=== PATIENT | female | born 1960 | race Caucasian/White ===

== ENCOUNTER 2021-09-24 09:20 | Emergency (ER) | payer BC, SELFPAY ==
--- NOTE | ~2021-09-24 | CT_ITS ---
EXAMINATION: CT abdomen pelvis wo con DATE: 09/24/2021 10:01 INDICATION: Left flank pain TECHNIQUE: Computed tomography (CT) of the abdomen and pelvis was performed without intravenous contr ast. The dose-length product (DLP) was 691.24 mGy-cm. Automated exposure control and iterative recons truction technique were employed. COMPARISON: None FINDINGS: Minimal dependent atelectasis is present in the lung bases. The heart size is normal. The l iver, spleen, pancreas, gallbladder, and adrenal glands are normal. The kidneys are unremarkable. No stones are identified in the kidneys, ureters, or bladder. There is no hydronephrosis or hydroureter. No pathologically enlarged abdominal or pelvic lymph nodes are identified. There is no free intraper itoneal gas or evidence of bowel obstruction. Colonic diverticulosis is present without evidence of d iverticulitis. There is moderate lumbar spondylosis. IMPRESSION: 1. No CT correlate for the patient's symptoms. Reviewed, dictated and finalized at location B.
[2021-09-24 09:30] VITALS: BP 186/90; PULSE 88; RESP 16; TEMP 36.1; O2SAT 98
--- NOTE | 2021-09-24 09:51 | ED.BACK ---
HPI - Back Pain/Injury General Chief Complaint: Back Pain/Injury Stated Complaint: flank pain Time Seen by Provider: 09/24/21 09:38 Source: patient Mode of arrival: ambulatory Limitations: no limitations History of Present Illness HPI Narrative: Patient is 61 years old white female presents with intermittent left flank pain over the last 2 weeks, lately radiating to left lower quadrant. Patient denies any aggravating or relieving factors. Patient denies any fever, chills, nausea, vomiting, diarrhea, urinary symptoms. Patient been to a chiropractor and body massage in the last few days without any improvement. History of section x2, kidney stone and degenerative joint disease. Related Data Home Medications Medication Instructions Recorded Confirmed calcium carbonate 600 mg calcium 600 mg PO DAILY 07/15/20 04/23/21 (1,500 mg) tablet cholecalciferol (vitamin D3) 10 10 mcg PO DAILY 07/15/20 04/23/21 mcg (400 unit) capsule diphenhydramine HCl 25 mg capsule 25 mg PO TID PRN 07/15/20 04/23/21 fluocinonide 0.05 % topical gel 1 applic TOPICAL BID 07/15/20 07/15/20 multivitamin 1 tablet PO DAILY 07/15/20 04/23/21 Allergies Allergy/AdvReac Type Severity Reaction Status Date / Time Iodinated Contrast Media Allergy Mild Itching Verified 09/24/21 09:41 Review of Systems Review of Systems: CONSTITUTIONAL: Denies fever, chills, or sweats. EYES: Denies visual changes, redness, or discharge. ENT: Denies rhinorrhea, congestion, sore throat, or otalgia. CARDIOVASCULAR: Denies chest pain, palpitations, or edema. RESPIRATORY: Denies cough or dyspnea. GASTROINTESTINAL: Denies abdominal pain, nausea, vomiting, or diarrhea. GENITOURINARY: Denies dysuria or hematuria. SKIN: Denies rash or itching. MUSCULOSKELETAL: Denies back pain, joint pain, or myalgia. NEUROLOGIC: Denies headache, numbness, or weakness. PSYCHIATRIC: Denies anxiety or depression. [facility] Past Medical History Medical History (Updated 09/24/21 @ 11:31 by Rocky Lai MD) BMI 27.0-27.9,adult Carpometacarpal joint dislocation Chronic low back pain Encounter for wellness examination Foot pain Osteoarthritis of both wrists Torn Achilles tendon Unspecified osteoarthritis, unspecified site Vitamin D deficiency Surgical History Surgical History Hx of section 1989 & 1992 Family History Family History Other Diabetes mellitus Family history of arthritis Family history of kidney disease Hypertension Social History Social History Smoking status: Former smoker Second hand tobacco smoke exposure: No Smoking end date: 07/05/85 Alcohol intake: current Alcohol use details: consumes 2 beers weekly Substance use: never Substance use type: does not use Gender identity (if verbalized by the patient): Female Exam Narrative: General appearance: Well-developed, well-nourished Skin: Normal color Head: Normocephalic, nontraumatic Eyes: Clear conjunctiva ENT: Oropharynx normal, ears normal, nose normal Neck: Supple, nontender Chest and respiratory: Airway patent, no respiratory distress, no accessory muscle use Heart: Regular rate/rhythm Abdomen: Soft, mild tenderness left flank, no guarding or rebound Vascular: Normal peripheral pulses, normal capillary refill. Musculoskeletal: Normal range of motion, nontender back Neurologic: Alert and oriented ?3, [employer] is normal as tested, no gross motor deficit Course Vital Signs Vital signs: Vital Signs Temperature 36.1 C L 09/24/21 09:30 Pulse Rate
[2021-09-24] MEDS: SODIUM CHLORIDE 0.9% IV 1,000 ML 999 ML IV CONT (10:15)
[2021-09-24 10:30] LABS: Basophils Percent Auto 0.5 % (0.2-1.2); Eosinophils Absolute Auto 0.1 K/mm3 (0-0.3); Eosinophils Percent Auto 2.7 % (0-4.4); Hematocrit 41.4 % (37.0-47.0); Immature Granulocyte Absolute 0.01 K/mm3 (0.00-0.031); Immature Granulocyte Percent A 0.2 % (0-0.5); Lymphocytes Absolute Auto 0.93 K/mm3 (0.9-3.2); Mean Corpuscular HGB Conc 33.8 g/dl (32-36); Mean Corpuscular Hemoglobin 31.5 pg (26-34); Mean Corpuscular Volume 93.2 fl (80-100); Monocytes Absolute Auto 0.3 K/mm3 (0.1-0.6); Monocytes Percent Auto 6.6 % (2.6-8.5); Neutrophils Absolute Auto 3.1 K/mm3 (1.3-6.7); Platelet Count Result 192 k/mm3 (150-375); Red Blood Count 4.44 M/mm3 (4.2-5.4); White Blood Count 4.4 K/mm3 (4.5-10.0)
[2021-09-24 10:34] LABS: Add Urine Microscopic? YES; Appearance Urine Cloudy (Clear); Bilirubin Urine Negative (Negative); Blood Urine Negative (Negative); Color Urine Yellow (Yellow); Glucose Urine UA Negative (Negative); Ketones Urine Negative (Negative); Leukocyte Esterase Ur Trace LEU/UL (Negative); Mucus Urine Moderate /lpf; Nitrate Urine Negative (Negative); Protein Urine Negative (Negative); RBC Urine 0-2 /hpf (0-2); Specific Grav Ur 1.019 (1.001-1.035); Squamous Epithelial Cell Urine Rare /hpf (Few); Urobilinogen Urine Negative mg/dL (<2.0); WBC Urine 0-3 /hpf
[2021-09-24 10:42] LABS: Alanine Aminotransferase 19 U/L (4-35); Albumin Level 4.2 g/dL (3.5-5.1); Alkaline Phosphatase 65 U/L (38-126); Anion Gap 6 mmol/L (8-16); Aspartate Amino Transferase 23 U/L (14-36); Bilirubin,Total 0.2 mg/dL (0.2-1.3); Blood Urea Nitrogen 13 mg/dL (7-17); Calcium 9.2 mg/dL (8.4-10.2); Carbon Dioxide 27 mmol/L (22-30); Chloride 105 mmol/L (98-107); Estimated CRCL calculation 56 ml/min; Estimated Glomerular Filt Rate > 60; Glucose 113 mg/dL (65-110); Lipase 106 U/L (23-300); Sodium 138 mmol/L (137-145)
[2021-09-24 11:18] VITALS: BP 136/70; PULSE 60; RESP 15; O2SAT 100
--- NOTE | 2021-09-24 11:18 | PC.NURSE ---
Pt to CT.
[2021-09-24] MEDS: MORPHINE SULFATE (*CRX) 4 MG/ML INJ IV PUSH (11:29)
[2021-09-24] MEDS: ONDANSETRON INJ 4 MG/2 ML VIAL IV PUSH (11:29)
[2021-09-24] MEDS: KETOROLAC 30 MG/ML VIAL (*BKC) IV PUSH (11:33)
[2021-09-24 12:02] VITALS: BP 147/82; PULSE 74; RESP 16; O2SAT 96
== END 2021-09-24 12:02 | disposition home or self-care (01) ==
PROVIDERS: Emergency Provider Emergency Medicine; PCP Family Medicine
DX: M54.50 Low back pain, unspecified (principal); M19.90 Unspecified osteoarthritis, unspecified site
CPT/HCPCS: 36415; 74176; 80053; 81001; 83690; 85025; 96361; 96374; 96375; 99284; J1885; J2270; J2405; J7030

== ENCOUNTER 2022-06-16 13:08 | Outpatient (CLI) | payer BC, SELFPAY ==
[2022-06-16 13:59] LABS: Influenza A QL RT-PCR Negative (Negative); Influenza B QL RT-PCR Negative (Negative); RSV RNA, RT-PCR Negative (Negative); SARS-CoV-2 RNA PCR Negative
== END 2022-06-16 13:09 | disposition home or self-care (01) ==
LOC: ANHLAB 13:10
PROVIDERS: PCP Family Medicine; Visit Provider Physician Assistant
DX: R50.9 Fever, unspecified (principal); Z20.822 Contact with and (suspected) exposure to COVID-19
CPT/HCPCS: 87637

== ENCOUNTER 2022-08-17 16:56 | Outpatient (CLI) | payer BC, SELFPAY ==
--- NOTE | ~2022-08-17 | XR_ITS ---
EXAMINATION: XR chest 2V Exam Date/Time: 08/17/2022 17:13 SAFETY COMPLIANCE SPECIALIST HISTORY: R06.2 - Wheezing FOR 4 DAYS Comparison: None available. RESULT: Lines, tubes, and devices: None. Lungs and pleura: Clear. Cardiomediastinal silhouette: Unremarkable. Other: No acute osseous or upper abdominal finding. IMPRESSION: No acute cardiopulmonary process. Reviewed, dictated and finalized at location K. TY COMPLIANCE SPECIALIST
== END 2022-08-17 16:57 | disposition home or self-care (01) ==
PROVIDERS: PCP Family Medicine; Visit Provider Physician Assistant Medical
DX: R06.2 Wheezing (principal)
CPT/HCPCS: 71046

== ENCOUNTER 2023-02-18 06:06 | Emergency (ER) | payer BC, SELFPAY ==
[2023-02-18] VITALS (22 sets, daily range): BP systolic 130–151; BP diastolic 80–103; PULSE 122; RESP 22; TEMP 36.7; O2SAT 94–100
--- NOTE | ~2023-02-18 | XR_ITS ---
EXAMINATION: XR chest 1V portable DATE: 02/18/2023 07:49 INDICATION: Chest tightness. Shortness of breath. TECHNIQUE: A single frontal view of the chest was obtained. COMPARISON: Chest 2 views 08/17/2022, CT abdomen and pelvis 09/24/2021 FINDINGS: There is no pneumonia, pleural effusion, or pneumothorax. The heart size is normal. IMPRESSION: 1. No acute cardiopulmonary disease. Reviewed, dictated and finalized at location A.
[2023-02-18] MEDS: SODIUM CHLORIDE 0.9% IV 1,000 ML 999 ML IV CONT (06:27)
[2023-02-18] MEDS: methylPREDNISolone SOD SUCC 125 MG VIAL IV PUSH (06:27)
[2023-02-18] MEDS: diphenhydrAMINE HCl INJ 50 MG/ML VIAL 25 MG IV PUSH (06:27)
[2023-02-18] MEDS: FAMOTIDINE 20 MG/2 ML VIAL IV PUSH (06:27)
--- NOTE | 2023-02-18 06:32 | ED.GENADULT ---
HPI - General Adult General Chief complaint: Allergic Reaction <Favio Chandra MD - Last Filed: 02/18/23 07:12> Stated complaint: severe itching <Favio Chandra MD - Last Filed: 02/18/23 07:12> Time Seen by Provider: 02/18/23 06:14 <Favio Chandra MD - Last Filed: 02/18/23 07:12> History of Present Illness HPI narrative: Patient is a 62-year-old female who presents the emergency department with chief complaint of possible allergic reaction. Patient reports that she woke up from sleep last night itching all over and reports that her face and neck were red. The patient reports no new medications reports no new soaps or creams the patient only reports that she had a peach ger yesterday is the only thing different. <Favio Chandra MD - Last Filed: 02/18/23 07:12> Related Data Home medications: Home Medications Medication Instructions Recorded Confirmed calcium carbonate 600 mg calcium 600 mg PO DAILY 07/15/20 02/02/23 (1,500 mg) tablet (Calcium) cholecalciferol (vitamin D3) 10 10 mcg PO DAILY 07/15/20 02/02/23 mcg (400 unit) capsule diphenhydramine HCl 25 mg capsule 25 mg PO TID PRN 07/15/20 02/02/23 (Benadryl) multivitamin (Daily Multi-Vitamin 1 tablet PO DAILY 07/15/20 02/02/23 tablet) <Favio Chandra MD - Last Filed: 02/18/23 07:12> Allergies/adverse reactions: Allergies Allergy/AdvReac Type Severity Reaction Status Date / Time Iodinated Contrast Media Allergy Mild Itching Verified 02/18/23 06:06 <Favio Chandra MD - Last Filed: 02/18/23 07:12> Review of Systems Review of Systems: A 10 system review of systems was completed on the patient and is negative except for what is stated in the HPI. Nursing and ancillary documentation was reviewed. <Favio Chandra MD - Last Filed: 02/18/23 07:12> [facility] Past Medical History Medical History: Medical History (Updated 02/18/23 @ 07:11 by Favio Chandra MD) BMI 27.0-27.9,adult Carpometacarpal joint dislocation Chronic low back pain Encounter for wellness examination Foot pain Osteoarthritis of both wrists Torn Achilles tendon Unspecified osteoarthritis, unspecified site Vitamin D deficiency <Favio Chandra MD - Last Filed: 02/18/23 07:12> Surgical History Surgical History: Surgical History Hx of section 1989 & 1992 <Favio Chandra MD - Last Filed: 02/18/23 07:12> Family History Family History: Family History Other Diabetes mellitus Family history of arthritis Family history of kidney disease Hypertension <Favio Chandra MD - Last Filed: 02/18/23 07:12> Social History Social History: Social History Smoking status: Former smoker Second hand tobacco smoke exposure: No Smoking end date: 07/05/85 Alcohol intake: current Alcohol use details: consumes 2 beers weekly Substance use: never Substance use type: does not use Lack of Transportation: No Lack of Food: Never True Current Housing: I Have Housing Concerned About Future Housing: No Difficulty Paying Gas/Electric Bills: No Difficulty Paying for Meds: No Currently Unemployed: No Education: Master's Degree or Higher Difficulty w/ Childcare or Family Care: No Gender identity (if verbalized by the patient): Female Spiritual care concerns: No Agree to blood products: Yes <Favio Chandra MD - Last Filed: 02/18/23 07:12> Exam Narrative: GENERAL: Well-appearing, well-nourished, and in no acute distress. HEAD: Normocephalic, atraumatic. EYES: PERRLA and EOMI. ENT: Nares clear, no rhinorrhea or epistaxis. Mucous membranes moist. NECK: Supple. CHEST: Clear to auscultation.
[2023-02-18 06:45] LABS: Basophils Percent Auto 0.5 % (0.2-1.2); Eosinophils Absolute Auto 0.1 K/mm3 (0-0.3); Hematocrit 47.1 % (37.0-47.0); Hemoglobin 15.5 g/dL (12.0-15.0); Immature Granulocyte Absolute 0.02 K/mm3 (0.00-0.031); Immature Granulocyte Percent A 0.4 % (0-0.5); Lymphocytes Absolute Auto 1.98 K/mm3 (0.9-3.2); Lymphocytes Percent Auto 35.9 % (18.3-44.2); Mean Corpuscular HGB Conc 32.9 g/dl (32-36); Mean Corpuscular Hemoglobin 31.3 pg (26-34); Mean Platelet Volume 10.4 fl (7.4-10.4); Monocytes Absolute Auto 0.4 K/mm3 (0.1-0.6); Monocytes Percent Auto 7.8 % (2.6-8.5); Neutrophils Absolute Auto 2.9 K/mm3 (1.3-6.7); Neutrophils Percent Auto 53.4 % (45.5-73.1); Platelet Count Result 329 k/mm3 (150-375); Red Blood Count 4.96 M/mm3 (4.2-5.4); Red Cell Distribution Width 12.7 % (11.5-14.5); White Blood Count 5.5 K/mm3 (4.5-10.0)
[2023-02-18 06:59] LABS: Alanine Aminotransferase 29 U/L (6-35); Albumin Level 4.3 g/dL (3.5-5.1); Alkaline Phosphatase 95 U/L (38-126); Anion Gap 9 mmol/L (8-16); Aspartate Amino Transferase 26 U/L (14-36); Bilirubin,Total 0.4 mg/dL (0.2-1.3); Blood Urea Nitrogen 19 mg/dL (7-17); Calcium 9.4 mg/dL (8.4-10.2); Carbon Dioxide 22 mmol/L (22-30); Chloride 103 mmol/L (98-107); Estimated CRCL calculation 55 ml/min; Estimated Glomerular Filt Rate 56; Glucose 130 mg/dL (65-110); Magnesium 2.2 mg/dL (1.6-2.3); Potassium 3.7 mmol/L (3.4-5.0); Sodium 134 mmol/L (137-145)
--- NOTE | 2023-02-18 07:14 | ECG_ITS ---
Measurements Intervals [place] Rate: 72 P: 28 TN: 141 QRS: 13 QRSD: 85 T: 28 QT: 376 QTc: 413 Interpretive Statements SINUS RHYTHM LOW QRS VOLTAGE IN PRECORDIAL LEADS [QRS DEFLECTION < 1.0 mV IN CHEST LEADS] BORDERLINE ECG NO PREVIOUS ECG AVAILABLE FOR COMPARISON Electronically Signed On 02-18-2023 13:17:00 CDT by Franco Nguyen M.D.
[2023-02-18 07:59] LABS: Troponin I < 0.012 ng/mL (0.000-0.034)
[2023-02-18 11:19] LABS: Troponin I 0.027 ng/mL (0.000-0.034)
== END 2023-02-18 11:48 | disposition home or self-care (01) ==
PROVIDERS: Emergency Medicine; Emergency Provider General Practice; PCP Family Medicine
DX: T78.40XA Allergy, unspecified, initial encounter (principal); Z87.891 Personal history of nicotine dependence
CPT/HCPCS: 36415; 71045; 80053; 83735; 84484; 85025; 93005; 96361; 96374; 96375; 99284; J1200; J2930; J7030

== ENCOUNTER 2023-05-14 14:33 | Inpatient (IN) | payer BC, SELFPAY ==
[2023-05-14] VITALS (19 sets, daily range): BP systolic 105–201; BP diastolic 56–110; PULSE 78–95; RESP 14–18; TEMP 36.2–36.4; O2SAT 90–100; BMI 32.4
--- NOTE | ~2023-05-14 | US_ITS ---
EXAMINATION: US abdomen limited DATE: 05/14/2023 17:29 INDICATION: Right upper quadrant abdominal tenderness. TECHNIQUE: Multiple grayscale and Doppler ultrasound images of the abdomen were obtained. COMPARISON: CT abdomen and pelvis 09/24/2021 FINDINGS: The visualized portions of the head and body of the pancreas are normal. The liver is gay l without focal lesion. There is normal flow in main portal vein. The gallbladder is normal in size a nd contains gallstones. Gallbladder wall thickening is noted. There is no sonographic Eastman sign. Th e common duct is normal and measures 4 mm. IMPRESSION: 1. Cholelithiasis. Gallbladder wall thickening may be secondary to chronic cholecystitis. Reviewed, dictated and finalized at location E. FINISHER IMPRESSION: 1. Cholelithiasis. Gallbladder wall thickening may be secondary to chronic chol ecystitis.
--- NOTE | ~2023-05-14 | XR_ITS ---
EXAMINATION: XR chest 1V portable INDICATION: Epigastric pain TECHNIQUE: Portable AP chest at 1639 hours COMPARISON: 02/18/2023 FINDINGS: The lungs are free of acute opacities. No pleural effusion or pneumothorax. The cardiomedia stinal silhouette is normal. IMPRESSION: 1. No acute cardiopulmonary abnormality. Reviewed, dictated and finalized at location B. NT CARE NURSE PRACTITIONER
--- NOTE | ~2023-05-14 | CT_ITS ---
EXAMINATION: CT abdomen pelvis wo con DATE: 05/14/2023 18:01 INDICATION: Upper abdominal pain. TECHNIQUE: Computed tomography (CT) of the abdomen and pelvis was performed without intravenous contr ast. Automated exposure control and iterative reconstruction technique were employed. The dose-length product was 968.24 mGy-cm. COMPARISON: CT abdomen and pelvis 09/24/2021 FINDINGS: The visualized portions of the lung bases demonstrate mild atelectasis. No pleural effusion . The heart size is normal. There are coronary artery calcifications. No pericardial effusion. There is a small sliding hiatal hernia. The liver and spleen are normal. The gallbladder is distended and c ontains gallstones. Gallbladder wall thickening is noted. The pancreas, adrenal glands, and kidneys a re normal. There is no urolithiasis. There is diverticulosis of the colon without evidence of diverti culitis. The appendix is normal. There are no dilated loops of bowel. There are no pathologically enl arged lymph nodes. There is no free intraperitoneal fluid. There is moderate thoracic spondylosis and severe lumbar spondylosis. IMPRESSION: 1. Acute cholecystitis. Reviewed, dictated and finalized at location E. AROUND PRESSER IMPRESSION: 1. Acute cholecystitis.
[2023-05-14 14:54] LABS: Basophils Percent Auto 0.4 % (0.2-1.2); Eosinophils Absolute Auto 0.2 K/mm3 (0-0.3); Eosinophils Percent Auto 1.7 % (0-4.4); Hematocrit 45.4 % (37.0-47.0); Hemoglobin 15.1 g/dL (12.0-15.0); Immature Granulocyte Absolute 0.06 K/mm3 (0.00-0.031); Immature Granulocyte Percent A 0.6 % (0-0.5); Lymphocytes Absolute Auto 1.08 K/mm3 (0.9-3.2); Lymphocytes Percent Auto 11.1 % (18.3-44.2); Mean Corpuscular HGB Conc 33.3 g/dl (32-36); Mean Corpuscular Hemoglobin 31.5 pg (26-34); Mean Corpuscular Volume 94.8 fl (80-100); Mean Platelet Volume 10.8 fl (7.4-10.4); Monocytes Absolute Auto 0.7 K/mm3 (0.1-0.6); Monocytes Percent Auto 6.7 % (2.6-8.5); Neutrophils Absolute Auto 7.8 K/mm3 (1.3-6.7); Neutrophils Percent Auto 79.5 % (45.5-73.1); Platelet Count Result 264 k/mm3 (150-375); Red Blood Count 4.79 M/mm3 (4.2-5.4); Red Cell Distribution Width 12.3 % (11.5-14.5); White Blood Count 9.8 K/mm3 (4.5-10.0)
[2023-05-14 14:58] LABS: Appearance Urine Cloudy (Clear); Bacteria Urine None Seen /hpf; Bilirubin Urine Negative (Negative); Blood Urine Negative (Negative); Color Urine Yellow (Yellow); Glucose Urine UA Negative (Negative); Ketones Urine Negative (Negative); Leukocyte Esterase Ur 1+ LEU/UL (Negative); Nitrate Urine Negative (Negative); Non Pathogenic Casts 0-2; Protein Urine Negative (Negative); RBC Urine 0-2 /hpf (0-2); Squamous Epithelial Cell Urine None seen /hpf (Few); pH Urine 6.5 (5.0-9.0)
[2023-05-14 15:00] LABS: Add Urine Microscopic? YES
[2023-05-14 15:18] LABS: Alanine Aminotransferase 23 U/L (6-35); Albumin Level 4.7 g/dL (3.5-5.1); Alkaline Phosphatase 87 U/L (38-126); Anion Gap 12 mmol/L (8-16); Aspartate Amino Transferase 23 U/L (14-36); Bilirubin,Total 0.5 mg/dL (0.2-1.3); Blood Urea Nitrogen 9 mg/dL (7-17); Calcium 9.7 mg/dL (8.4-10.2); Carbon Dioxide 27 mmol/L (22-30); Chloride 96 mmol/L (98-107); Estimated Glomerular Filt Rate > 60; Glucose 145 mg/dL (65-110); Lipase 93 U/L (23-300); Potassium 3.7 mmol/L (3.4-5.0); Sodium 135 mmol/L (137-145)
--- NOTE | 2023-05-14 16:14 | ED.ABDPAIN ---
HPI - Abdominal Pain General Chief Complaint: Abdominal Pain Stated Complaint: ab pain Time Seen by Provider: 05/14/23 15:08 History of Present Illness HPI narrative: Patient is a 62-year-old female presenting with abdominal pain. Patient states that starting last night she developed upper abdominal pain that has not resolved. States that she initially thought it was indigestion so she took Prevacid on some Tums. States that this normally helps when she has indigestion but it did not this time. No nausea or vomiting. States that she had 3 small bowel movements today. No hematochezia or melena. No chest pain or shortness of breath. No fevers or chills. No further complaints. Related Data Home Medications Medication Instructions Recorded Confirmed calcium carbonate 600 mg calcium 600 mg PO DAILY 07/15/20 05/14/23 (1,500 mg) tablet (Calcium) cholecalciferol (vitamin D3) 10 10 mcg PO DAILY 07/15/20 05/14/23 mcg (400 unit) capsule multivitamin (Daily Multi-Vitamin 1 tablet PO DAILY 07/15/20 05/14/23 tablet) melatonin 3 mg tablet 3 mg PO HS PRN Sleep 05/14/23 05/14/23 meloxicam 15 mg tablet See Rx Instructions .Route 05/14/23 05/14/23 .COMPLEX PRN arthritis Allergies Allergy/AdvReac Type Severity Reaction Status Date / Time Iodinated Contrast Media Allergy Mild Itching Verified 05/14/23 22:37 Review of Systems Review of Systems: All systems reviewed & are unremarkable except as noted in HPI and below PMFSH Past Medical History Medical History (Updated 05/16/23 @ 15:39 by Caitlyn Cash MD) Benign mucous membrane pemphigoid Carpometacarpal joint dislocation Chronic low back pain Insomnia Obesity (BMI 30.0-34.9) Osteoarthritis of both wrists Torn Achilles tendon Unspecified osteoarthritis, unspecified site Vitamin D deficiency Surgical History Surgical History (Updated 05/15/23 @ 02:17 by Trudi Wilkinson DO) Abnormal findings on laryngoscopy Vocal cord polyps with removal Hx of section 1989 & 1992 Family History Family History (Updated 05/15/23 @ 02:17 by Trudi Wilkinson DO) Grandparent Diabetes mellitus Father , At age 89 Family history of kidney disease Mother , At age 86 Hypertension Sibling Idiopathic hypertrophic subaortic stenosis, Onset Age: 46 Social History Social History (Updated 05/15/23 @ 02:21 by Trudi Wilkinson DO) Social History: She is . She lives with her significant other of over 15 years. 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 She drinks approximately 5 alcoholic beverages on the weekend. She denies any illicit substance use. She smoked 1 pack per day for approximately 10 years but quit in the . Code status: Full code Smoking packs per day: 1 Smoking cigarettes per day: 20.0 Years smoked: 10 Smoking pack-years: 10.00 Smoking status: Former smoker Second hand tobacco smoke exposure: No Smoking end date: 07/05/85 Alcohol intake: current Drinks per week: 5 Alcohol use details: Five select SS which her lower alcoholic beer alternatives. Substance use: never Substance use type: does not use Lack of Transportation: No Lack of Food: Never True Current Housing: I Have Housing Concerned About Future Housing: No Difficulty Paying Gas/Electric Bills: No Difficulty Paying for Meds: No Currently Unemployed: No Education: Master's Degree or Higher Difficulty w/ Childcare or Family Care: No Gender identity (if verbalized by the patient): Female Spiritual care concerns: No Agree to blood products: Yes Exam Narrative: GENERAL: Well-appearing, no acute distress, pleasant and cooperative HEAD: Normocephalic, atraumatic. EYES: PERRLA and EOMI. ENT: Grossly unremarkable NECK: Supple. CHEST: Clear to auscultation. No respiratory distress. HEART: Regular rate and rhythm ABDOMEN: Soft, + right upper quadrant and
[2023-05-14] MEDS: SODIUM CHLORIDE 0.9% IV 1,000 ML 999 ML IV CONT (16:28)
[2023-05-14 17:07] LABS: Troponin I < 0.012 ng/mL (0.000-0.034)
[2023-05-14 18:12] LABS: Troponin I < 0.012 ng/mL (0.000-0.034)
[2023-05-14] MEDS: metroNIDAZOLE 500 MG/ISO 100ML 500 MG/100 ML BAG 100 MG IVPB (19:03)
[2023-05-14] MEDS: cefTRIAXone 2 GM/NS 100 ML 2 GM/100 ML BAG IVPB (19:04)
[2023-05-14] MEDS: HYDROmorphone HCL INJ (*CRX) 1 MG/ML SYR 0.5 MG IV PUSH (19:11)
[2023-05-14] MEDS: HYDROmorphone HCL INJ (*CRX) 1 MG/ML SYR IV PUSH (20:37)
--- NOTE | 2023-05-14 22:21 | ADMGEN ---
This patient, Shira Spivey, was admitted to Medical Room 253-01. Patient/family oriented to hospital policies and general routines including ID bracelet, bed and alarms, visiting hours, pain management, procedures, bathroom and other care routines, personal items, smoking policy, room service/diet, and visiting hours. Information on how to activate the Rapid Response Team has been discussed. Patient/Family are encouraged to report perceived risks to care and to ask questions if they do not understand what they are told or what they should do.
--- NOTE | 2023-05-14 23:45 | PM.IMHP ---
H&P: HPI History of Present Illness Date/Time: 05/14/23 23:45 Chief Complaint: Abdominal pain Narrative: 62-year-old female with past medical history of osteoarthritis and obesity who presented to the ER with epigastric and right upper quadrant abdominal pain. Patient reports that she has been having intermittent episodes of epigastric and right upper quadrant abdominal pain that she thought was due to indigestion. She describes as a uncomfortable pressure-like sensation in her epigastric area. She has not noticed any direct correlation with eating. Often times symptoms told her when she gets ready to go to bed. She tried stacked to eat for 2-3 hours before she goes to bed. She has tried Tums and Pepcid at home and usually gets relief of her symptoms. She tried some Pepto-Bismol earlier today without relief. Her symptoms this time started around 19:00 on the and did not improve so she decided to come into the ER. Her symptoms are usually not associated with any significant nausea. She did have 1 episode of vomiting with a recent episode of the pain. Her pain is a 6/10 in intensity. It was relieved after 2nd dose of Dilaudid in the ER. She denies any changes in her bowel habits. She has been passing gas. She does report her weight fluctuates up and down. She has been on weight watchers for the last couple of months and has lost 10 lb. She denies eating any significant fatty foods recently. She has not had any fevers or chills. Review of Systems Review of Systems: 12 systems were reviewed with pertinent positives and negatives per HPI. Except as documented in the HPI, all other systems were reviewed and are negative. She reports arthritis ?everywhere?. She denies any respiratory symptoms. She denies any urinary symptoms [facility] Past Medical History Medical History (Updated 05/15/23 @ 02:27 by Trudi Wilkinson DO) Benign mucous membrane pemphigoid Carpometacarpal joint dislocation Chronic low back pain Insomnia Obesity (BMI 30.0-34.9) Osteoarthritis of both wrists Torn Achilles tendon Unspecified osteoarthritis, unspecified site Vitamin D deficiency Surgical History Surgical History (Updated 05/15/23 @ 02:17 by Trudi Wilkinson DO) Abnormal findings on laryngoscopy Vocal cord polyps with removal Hx of section 1989 & 1992 Family History Family History (Updated 05/15/23 @ 02:17 by Trudi Wilkinson DO) Grandparent Diabetes mellitus Father , At age 89 Family history of kidney disease Mother , At age 86 Hypertension Sibling Idiopathic hypertrophic subaortic stenosis, Onset Age: 46 Social History Social History (Updated 05/15/23 @ 02:21 by Trudi Wilkinson DO) Social History: She is . She lives with her significant other of over 15 years. 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 She drinks approximately 5 alcoholic beverages on the weekend. She denies any illicit substance use. She smoked 1 pack per day for approximately 10 years but quit in the . Code status: Full code Smoking packs per day: 1 Smoking cigarettes per day: 20.0 Years smoked: 10 Smoking pack-years: 10.00 Smoking status: Former smoker Second hand tobacco smoke exposure: No Smoking end date: 07/05/85 Alcohol intake: current Drinks per week: 5 Alcohol use details: Five select SS which her lower alcoholic beer alternatives. Substance use: never Substance use type: does not use Lack of Transportation: No Lack of Food: Never True Current Housing: I Have Housing Concerned About Future Housing: No Difficulty Paying Gas/Electric Bills: No Difficulty Paying for Meds: No Currently Unemployed: No Education: Master's Degree or Higher Difficulty w/ Childcare or Family Care: No Gender identity (if verbalized by the patient): Female Spiritual care concerns: No Agree to blood products: Yes Me
[2023-05-15] MEDS: MELATONIN 3 MG TABLET 6 MG PO ×2 (00:40→20:17)
[2023-05-15] MEDS: PIPERACILLIN/TAZ 4.5G/NS 100ML 4.5 GM/100 ML BAG IVPB ×5 (02:27→23:13)
[2023-05-15] MEDS: SODIUM CHLORIDE 0.9% IV 1,000 ML 100 ML IV CONT ×2 (02:27→14:26)
[2023-05-15 04:56] VITALS: BP 147/83; PULSE 87; RESP 16; TEMP 36.9; O2SAT 98
[2023-05-15] MEDS: HYDROmorphone HCL INJ (*CRX) 1 MG/ML SYR 0.5 MG IV PUSH ×4 (05:11→21:51)
[2023-05-15 05:15] LABS: Hematocrit 42.3 % (37.0-47.0); Hemoglobin 13.3 g/dL (12.0-15.0); Mean Corpuscular HGB Conc 31.4 g/dl (32-36); Mean Corpuscular Hemoglobin 30.2 pg (26-34); Mean Corpuscular Volume 96.1 fl (80-100); Mean Platelet Volume 10.8 fl (7.4-10.4); Platelet Count Result 200 k/mm3 (150-375); Red Cell Distribution Width 12.4 % (11.5-14.5); White Blood Count 7.8 K/mm3 (4.5-10.0)
[2023-05-15 05:26] LABS: Alanine Aminotransferase 17 U/L (6-35); Albumin Level 3.9 g/dL (3.5-5.1); Alkaline Phosphatase 76 U/L (38-126); Anion Gap 8 mmol/L (8-16); Aspartate Amino Transferase 18 U/L (14-36); Bilirubin,Total 0.7 mg/dL (0.2-1.3); Blood Urea Nitrogen 8 mg/dL (7-17); Calcium 8.8 mg/dL (8.4-10.2); Carbon Dioxide 28 mmol/L (22-30); Chloride 102 mmol/L (98-107); Estimated CRCL calculation 72 ml/min; Estimated Glomerular Filt Rate > 60; Glucose 133 mg/dL (65-110); Sodium 138 mmol/L (137-145)
--- NOTE | 2023-05-15 11:02 | PM.CNGS ---
Assessment and Plan Assessment and plan (1) Acute calculous cholecystitis: Code(s): K80.00 - Calculus of gallbladder with acute cholecystitis without obstruction Status: Acute Assessment and Plan: I have reviewed the CT and ultrasound and discussed the findings with the patient. She has evidence of acute cholecystitis on imaging and her clinical symptoms would support this. Her labs were overall normal and she is not showing any signs of sepsis. She has been admitted for further treatment and is being placed on empiric antibiotics. Patient may eventually need laparoscopic cholecystectomy, but this does not appear to be emergent at this current time. Will try clear liquids today and repeat labs in the morning. If symptoms are persisting, will likely keep patient until Wednesday and proceed with laparoscopic cholecystectomy on Wednesday. If symptoms completely resolve, she could be discharged home and plan for surgery as an outpatient. (2) Hypertension: Qualifiers: Hypertension type: primary hypertension Qualified Code(s): I10 - Essential (primary) hypertension Code(s): I10 - Essential (primary) hypertension Status: Acute History of Present Illness Consult details Consult date: 05/15/23 Reason for consult: other (Acute cholecystitis) Requesting physician: Caitlyn Cash MD Narrative: This is a 62-year-old woman who I am asked to see for acute cholecystitis. She presented to the emergency department last night with right upper quadrant abdominal pain that started 2 days ago. She does not recall anything in particular that she had eaten that would have caused this. She has been having frequent acid reflux symptoms and has been taking Tums or Pepcid AC for about the last 3 months. She denies any change in bowel habits. She denies any fevers or chills. She denies nausea or vomiting. In the emergency department she was noted to have normal labs ultrasound and CT showed evidence of cholelithiasis with gallbladder wall thickening. She has been admitted for further treatment. Review of Systems Review of Systems: All systems reviewed & are unremarkable except as noted in HPI and below Eyes: Eyes: Denies change in vision ENT: Denies hearing loss, Denies neck pain and Denies sore throat Cardiovascular: Cardiovascular: Denies chest pain and Denies dyspnea Respiratory: Respiratory: Denies cough, Denies dyspnea and Denies wheezing Gastrointestinal: Gastrointestinal: Reports as per HPI Genitourinary: Genitourinary: Denies hematuria and Denies dysuria Musculoskeletal: Musculoskeletal: Denies arthralgias, Denies joint swelling and Denies neck pain Allergic/Immunologic: Allergic/Immunologic: Denies wheezing [facility] Past Medical History Medical History (Updated 05/15/23 @ 11:08 by Matheus Mcdonnell DO) Benign mucous membrane pemphigoid Carpometacarpal joint dislocation Chronic low back pain Insomnia Obesity (BMI 30.0-34.9) Osteoarthritis of both wrists Torn Achilles tendon Unspecified osteoarthritis, unspecified site Vitamin D deficiency Surgical History Surgical History (Updated 05/15/23 @ 02:17 by Trudi Wilkinson DO) Abnormal findings on laryngoscopy Vocal cord polyps with removal Hx of section 1989 & 1992 Family History Family History (Updated 05/15/23 @ 02:17 by Trudi Wilkinson DO) Grandparent Diabetes mellitus Father , At age 89 Family history of kidney disease Mother , At age 86 Hypertension Sibling Idiopathic hypertrophic subaortic stenosis, Onset Age: 46 Social History Social History (Updated 05/15/23 @ 02:21 by Trudi Wilkinson DO) Social History: She is . She lives with her significant other of over 15 years. 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 She drinks approximately 5 alcoholic beverages on the weekend. She denies any illicit substance use. She smoked 1 pack per
--- NOTE | 2023-05-15 11:43 | PM.IMPN ---
Progress Note: A&P Assessment and Plan (1) Acute cholecystitis: Code(s): K81.0 - Acute cholecystitis Status: Suspected Assessment and Plan: As evidenced by physical exam, CT Scan and US. Pt. has been evaluated by Gen. Surgery Dr. Mcdonnell and he will re-evaluate in the AM after labs are performed. Clear liquid diet for now Labs in AM PRN pain control PRN Anti-emetics Continue Zosyn (2) Snoring: Code(s): R06.83 - Snoring Status: Chronic Assessment and Plan: No use of CPAP. Will continue to monitor Oxygen saturations specifically with sleeping. (3) Insomnia: Qualifiers: Insomnia type: primary Qualified Code(s): F51.01 - Primary insomnia Code(s): G47.00 - Insomnia, unspecified Status: Chronic Assessment and Plan: Continue melatonin Plan Surgery is covering. Will continue to monitor pt and follow recommendations of General Surgery. Time Spent With Patient Time: 20 minutes Subjective Date/time seen: 05/15/23 0930 Interval history: This pt was assessed at the bedside today in interval assessment after being admitted to the hospital with Biliary colic and possible Cholecystitis. She has controlled pain today and has remained NPO. No further N/V. General Surgery consulted and Dr. Mcdonnell wants to recheck labs in AM and will evaluate then whether or not to do surgery on Wednesday vs. as an outpatient. She has no new complaints today. Review of Systems Review of Systems: All systems reviewed & are unremarkable except as noted in HPI and below Exam Const: General: comfortable and no acute distress HENMT: Face/Nose/Sinus: Normal nares present Mouth: Yes moist mucous membranes Eyes: General: appearance normal, both eyes and all related structures Sclera: sclerae normal Neck: Neck: supple and no JVD Resp: Effort & Inspection: normal respiratory effort Auscultation: clear to auscultation bilaterally Cardio: Rate: regular rate Rhythm: regular rhythm Heart sounds: no gallops, no murmurs and no rubs GI: Inspection: non-distended GI Palp: Yes Soft to palpation and Yes Tenderness to palpation present (GI) (RUQ) Auscultation: normal bowel sounds Skin: General skin exam: normal color and no rashes or lesions noted Lesions: lesion noted Rashes: no rashes noted Wounds: no wounds Neuro: General: gait normal Speech: normal speech Motor exam (neuro): 5/5 motor strength present throughout and Normal motor muscle tone present throughout Sensory Exam: normal sensation Extrem: General: normal to inspection, no edema and no pedal edema Other: FROM Psych: Mental Status: mental status grossly normal Affect: normal affect Objective Data Vital Signs Vital Signs: Vital Signs - 24 hr 05/14/23 14:34 05/14/23 20:25 05/14/23 20:41 Temperature 97.2 F L Pulse Rate 95 87 Respiratory Rate 18 14 Blood Pressure 201/110 H 197/91 H Pulse Oximetry 100 99 97 Oxygen Delivery Room Air 05/14/23 20:42 05/14/23 20:45 05/14/23 20:46 Temperature Pulse Rate 78 Respiratory Rate Blood Pressure 159/83 H 136/65 Pulse Oximetry 97 93 90 Oxygen Delivery 05/14/23 20:47 05/14/23 21:00 05/14/23 21:01 Temperature Pulse Rate Respiratory Rate Blood Pressure 142/88 H Pulse Oximetry 92 99 97 Oxygen Delivery 05/14/23 21:15 05/14/23 21:16 05/14/23 21:30 Temperature Pulse Rate Respiratory Rate Blood Pressure 126/68 Pulse Oximetry 96 98 96 Oxygen Delivery 05/14/23 21:31 05/14/23 21:45 05/14/23 21:46 Temperature Pulse Rate Respiratory Rate Blood Pressure 119/56 L 105/58 L Pulse Oximetry 99 90 91 Oxygen Delivery 05/14/23 22:00 05/14/23 22:01 05/14/23 22:02 Temperature Pulse Rate 92 Respiratory Rate Blood Pressure 128/83 Pulse Oximetry 97 93 95 Oxygen Delivery 05/14/23 22:36 05/15/23 04:56 Temperature 97.6 F 98.4 F Pulse Rate 81 87 Respirator
[2023-05-15 14:00] VITALS: BP 138/76; PULSE 79; RESP 14; TEMP 37.1; O2SAT 100
[2023-05-15] MEDS: ONDANSETRON INJ 4 MG/2 ML VIAL IV PUSH (18:16)
[2023-05-15 20:16] VITALS: BP 138/70; PULSE 72; RESP 16; TEMP 36.6; O2SAT 99
[2023-05-16] MEDS: SODIUM CHLORIDE 0.9% IV 1,000 ML 100 ML IV CONT ×3 (00:26→19:56)
[2023-05-16 04:33] VITALS: BP 139/67; PULSE 82; RESP 14; TEMP 36.4; O2SAT 96
[2023-05-16] MEDS: PIPERACILLIN/TAZ 4.5G/NS 100ML 4.5 GM/100 ML BAG IVPB ×3 (05:14→18:51)
[2023-05-16] MEDS: HYDROmorphone HCL INJ (*CRX) 1 MG/ML SYR 0.5 MG IV PUSH ×4 (05:18→19:57)
[2023-05-16 05:59] LABS: Hematocrit 36.5 % (37.0-47.0); Hemoglobin 11.9 g/dL (12.0-15.0); Mean Corpuscular HGB Conc 32.6 g/dl (32-36); Mean Corpuscular Hemoglobin 31.5 pg (26-34); Mean Corpuscular Volume 96.6 fl (80-100); Mean Platelet Volume 10.8 fl (7.4-10.4); Platelet Count Result 170 k/mm3 (150-375); Red Blood Count 3.78 M/mm3 (4.2-5.4); Red Cell Distribution Width 12.5 % (11.5-14.5); White Blood Count 5.5 K/mm3 (4.5-10.0)
[2023-05-16 06:08] LABS: Alanine Aminotransferase 16 U/L (6-35); Albumin Level 3.3 g/dL (3.5-5.1); Alkaline Phosphatase 65 U/L (38-126); Anion Gap 8 mmol/L (8-16); Aspartate Amino Transferase 17 U/L (14-36); Bilirubin,Total 0.5 mg/dL (0.2-1.3); Blood Urea Nitrogen 5 mg/dL (7-17); Calcium 8.2 mg/dL (8.4-10.2); Carbon Dioxide 23 mmol/L (22-30); Chloride 106 mmol/L (98-107); Estimated CRCL calculation 72 ml/min; Estimated Glomerular Filt Rate > 60; Glucose 107 mg/dL (65-110); Lipase 53 U/L (23-300); Potassium 3.6 mmol/L (3.4-5.0); Sodium 137 mmol/L (137-145)
[2023-05-16] MEDS: polyethylene glycoL 3350 17 GM POWD.PACK PO (10:11)
[2023-05-16] MEDS: ONDANSETRON INJ 4 MG/2 ML VIAL IV PUSH (10:11)
--- NOTE | 2023-05-16 13:44 | PM.IMPN ---
Progress Note: A&P Assessment and Plan (1) Acute cholecystitis: Code(s): K81.0 - Acute cholecystitis Status: Suspected Assessment and Plan: As evidenced by physical exam, CT Scan and US. Pt. has been evaluated by Gen. Surgery Dr. Mcdonnell - pending surgery tomorrow (wednesday) or outpatient Clear liquid diet for now Labs in AM PRN pain control PRN Anti-emetics Continue Zosyn (2) Snoring: Code(s): R06.83 - Snoring Status: Chronic Assessment and Plan: No use of CPAP. Will continue to monitor Oxygen saturations specifically with sleeping. (3) Insomnia: Qualifiers: Insomnia type: primary Qualified Code(s): F51.01 - Primary insomnia Code(s): G47.00 - Insomnia, unspecified Status: Chronic Assessment and Plan: Continue melatonin Plan Surgery is covering. Will continue to monitor pt and follow recommendations of General Surgery. Subjective Date/time seen: 05/16/23 13:44 Interval history: This pt was assessed at the bedside today in interval assessment after being admitted to the hospital with Biliary colic and possible Cholecystitis. She has controlled pain but it is unchanged and has tolerated some clear liquids. No further N/V. General Surgery consulted and Dr. Mcdonnell will evaluate whether or not to do surgery on Wednesday vs. as an outpatient. Pending an update from surgery, She has no new complaints today. Will continue to monitor. Review of Systems Review of Systems: All systems reviewed & are unremarkable except as noted in HPI and below Exam Const: General: comfortable and no acute distress HENMT: Face/Nose/Sinus: Normal nares present Mouth: Yes moist mucous membranes Eyes: General: appearance normal, both eyes and all related structures Sclera: sclerae normal Neck: Neck: supple and no JVD Resp: Effort & Inspection: normal respiratory effort Auscultation: clear to auscultation bilaterally Cardio: Rate: regular rate Rhythm: regular rhythm Heart sounds: no gallops, no murmurs and no rubs GI: Inspection: non-distended Auscultation: normal bowel sounds Other: Soft, marked tenderness the right upper quadrant consistent with positive Eastman sign, no organomegaly, normal active bowel sounds Skin: General skin exam: normal color, no rashes or lesions noted, lesion and No rashes Lesions: lesion noted Rashes: no rashes noted Wounds: no wounds Neuro: General: gait normal Speech: normal speech Motor exam (neuro): 5/5 motor strength present throughout and Normal motor muscle tone present throughout Sensory Exam: normal sensation Extrem: General: normal to inspection, no edema and no pedal edema Psych: Mental Status: mental status grossly normal Objective Data Vital Signs Vital Signs: Vital Signs - 24 hr 05/15/23 14:00 05/15/23 20:16 05/15/23 20:15 Temperature 98.8 F 97.8 F Pulse Rate 79 72 Respiratory Rate 14 16 Blood Pressure 138/76 138/70 Pulse Oximetry 100 99 Oxygen Delivery Room Air 05/16/23 04:33 Temperature 97.6 F Pulse Rate 82 Respiratory Rate 14 Blood Pressure 139/67 Pulse Oximetry 96 Oxygen Delivery Intake/Output Intake/Output: Intake & Output 05/13/23 05/14/23 05/15/23 05/16/23 23:59 23:59 23:59 23:59 Intake Total 1200 2070 2630 Output Total 1050 900 Balance 1200 1020 1730 Meds/Results Medications: Active Medications Generic Name Dose Route Start Last Admin Trade Name Freq PRN Reason Stop Dose Admin Hydromorphone HCl 0.5 mg 05/14/23 19:56 05/16/23 10:02 Hydromorphone Hcl Inj (*Crx) 1 Mg/Ml Syr IV PUSH 0.5 mg Q4H PRN Administration Pain Rated 7-10 Piperacillin Sod/Tazobactam Sod 4.5 gm in 100 mls @ 200 mls/hr 05/15/23 03:00 05/16/23 05:44 Zosyn 4.5 Gm/Ns 100 Ml IVPB Infused Q6HR AISHA Infusion Sodium Chloride 1,000 mls @ 100 mls/hr 05/15/23 02:10 05/16/23 10:26 Normal Saline Iv IV CONT Infused .Q10H AISHA Infusion Melato
[2023-05-16 14:00] VITALS: BP 127/63; PULSE 76; RESP 16; TEMP 36.6; O2SAT 95
--- NOTE | 2023-05-16 14:01 | PM.PNGS ---
Progress Note: A&P Assessment and Plan (1) Acute calculous cholecystitis: Code(s): K80.00 - Calculus of gallbladder with acute cholecystitis without obstruction Status: Acute Assessment and Plan: Will plan for laparoscopic cholecystectomy, possible open tomorrow. Discussed the procedure, risks, benefits, and alternatives. Questions answered. Low fat diet today, NPO p MN (2) Hypertension: Qualifiers: Hypertension type: primary hypertension Qualified Code(s): I10 - Essential (primary) hypertension Code(s): I10 - Essential (primary) hypertension Status: Acute Subjective Subjective Date/Time Seen: 05/16/23 14:01 Interval history: Still having some pain when the pain meds wear off. Tolerating clears. Occasional nausea. Exam GI: Inspection: non-distended GI Palp: Yes Soft to palpation, No Tenderness to palpation present (GI), No Guarding due to palpation present (GI) and No Rebound tenderness present Auscultation: normal bowel sounds Objective Data Vital Signs Vital Signs: Vital Signs - 24 hr 05/15/23 20:16 05/15/23 20:15 05/16/23 04:33 Temperature 36.6 C 36.4 C Pulse Rate 72 82 Respiratory Rate 16 14 Blood Pressure 138/70 139/67 Pulse Oximetry 99 96 Oxygen Delivery Room Air Intake/Output Intake/Output: Intake & Output 05/13/23 05/14/23 05/15/23 05/16/23 23:59 23:59 23:59 23:59 Intake Total 1200 2070 2630 Output Total 1050 900 Balance 1200 1020 1730 Meds/Results Medications: Active Medications Generic Name Dose Route Start Last Admin Trade Name Freq PRN Reason Stop Dose Admin Hydromorphone HCl 0.5 mg 05/14/23 19:56 05/16/23 10:02 Hydromorphone Hcl Inj (*Crx) 1 Mg/Ml Syr IV PUSH 0.5 mg Q4H PRN Administration Pain Rated 7-10 Piperacillin Sod/Tazobactam Sod 4.5 gm in 100 mls @ 200 mls/hr 05/15/23 03:00 05/16/23 13:59 Zosyn 4.5 Gm/Ns 100 Ml IVPB 200 mls/hr Q6HR AISHA Administration Sodium Chloride 1,000 mls @ 100 mls/hr 05/15/23 02:10 05/16/23 13:58 Normal Saline Iv IV CONT 100 mls/hr .Q10H AISHA Administration Melatonin 6 mg 05/15/23 00:25 05/15/23 20:17 Melatonin 3 Mg Tablet PO 6 mg HS AISHA Administration Ondansetron HCl 4 mg 05/14/23 19:56 05/16/23 10:11 Ondansetron Inj 4 Mg/2 Ml Vial IV PUSH 4 mg Q4H PRN Administration Nausea Polyethylene Glycol 17 gm 05/16/23 08:37 05/16/23 10:11 Polyethylene Glycol 3350 17 Gm Powd.Pack PO 17 gm QAM PRN Administration Constipation Radiology Results: ITS Impressions Chest X-Ray 05/14/23 16:41 IMPRESSION: 1. No acute cardiopulmonary abnormality. Abdomen Ultrasound 05/14/23 17:32 IMPRESSION: 1. Cholelithiasis. Gallbladder wall thickening may be secondary to chronic cholecystitis. Abdomen/Pelvis CT 05/14/23 18:07 IMPRESSION: 1. Acute cholecystitis. Labs Labs: Laboratory Results - last 24 hr 05/16/23 05:33 WBC 5.5 RBC 3.78 L Hgb 11.9 L Hct 36.5 L MCV 96.6 MCH 31.5 MCHC 32.6 RDW 12.5 Plt Count 170 MPV 10.8 H Sodium 137 Potassium 3.6 Chloride 106 Carbon Dioxide 23 Anion Gap 8 BUN 5 L Creatinine 0.70 Estim Creat Clear Calc 72 Estimated GFR > 60 Glucose 107 Calcium 8.2 L Total Bilirubin 0.5 AST 17 ALT 16 Alkaline Phosphatase 65 Total Protein 6.0 L Albumin 3.3 L Lipase 53
[2023-05-16 19:36] VITALS: BP 116/59; PULSE 73; RESP 16; TEMP 36.4; O2SAT 99
[2023-05-16] MEDS: MELATONIN 3 MG TABLET 6 MG PO (19:56)
[2023-05-16 20:00] VITALS: PULSE 73; RESP 16; O2SAT 99
[2023-05-17] VITALS (15 sets, daily range): BP systolic 117–168; BP diastolic 48–72; PULSE 65–105; RESP 10–20; TEMP 36.3–37.1; O2SAT 10–98
[2023-05-17] MEDS: PIPERACILLIN/TAZ 4.5G/NS 100ML 4.5 GM/100 ML BAG IVPB ×3 (00:50→11:52)
[2023-05-17] MEDS: HYDROmorphone HCL INJ (*CRX) 1 MG/ML SYR 0.5 MG IV PUSH ×3 (03:11→13:27)
[2023-05-17] MEDS: SODIUM CHLORIDE 0.9% IV 1,000 ML 100 ML IV CONT ×2 (05:28→20:37)
[2023-05-17 05:48] LABS: Hematocrit 33.3 % (37.0-47.0); Hemoglobin 10.8 g/dL (12.0-15.0); Mean Corpuscular HGB Conc 32.4 g/dl (32-36); Mean Corpuscular Hemoglobin 31.1 pg (26-34); Mean Platelet Volume 10.3 fl (7.4-10.4); Platelet Count Result 168 k/mm3 (150-375); Red Blood Count 3.47 M/mm3 (4.2-5.4); Red Cell Distribution Width 12.4 % (11.5-14.5)
[2023-05-17 05:58] LABS: Anion Gap 6 mmol/L (8-16); Blood Urea Nitrogen 4 mg/dL (7-17); Carbon Dioxide 26 mmol/L (22-30); Chloride 107 mmol/L (98-107); Estimated CRCL calculation 72 ml/min; Estimated Glomerular Filt Rate > 60; Glucose 105 mg/dL (65-110); Lipase 41 U/L (23-300); Potassium 3.3 mmol/L (3.4-5.0); Sodium 139 mmol/L (137-145)
[2023-05-17 06:02] LABS: Partial Thromboplastin Time 30.6 SECONDS (22.3-36.8)
--- NOTE | 2023-05-17 08:55 | WPDANESEPPF ---
Anes - Initial Pre Proc Eval Procedure: Operation Date: 05/17/23 09:30 Proposed Procedures p Laparoscopic Cholecystectomy, Possible Open - Corbin Nails MD Date/Time: 05/17/23 08:55 Surgeon: POOJA Talavera Pre Op Diagnosis: Acute Cholecystitis Patient Data Age: 62 Gender: F Height: 1.6 m Weight: 83 kg Last Vital Signs Temp 36.4 C 05/17/23 06:59 Pulse 66 05/17/23 06:59 Resp 16 05/17/23 06:59 BP 117/70 05/17/23 06:59 Pulse Ox 95 05/17/23 06:59 O2 Del Method Room Air 05/16/23 20:00 Allergies Allergy/AdvReac Type Severity Reaction Status Date / Time Iodinated Contrast Media Allergy Mild Itching Verified 05/14/23 22:37 Home Medications Medication Instructions Recorded Confirmed Type calcium carbonate 600 mg calcium 600 mg PO DAILY 07/15/20 05/14/23 History (1,500 mg) tablet (Calcium) cholecalciferol (vitamin D3) 10 10 mcg PO DAILY 07/15/20 05/14/23 History mcg (400 unit) capsule multivitamin (Daily Multi-Vitamin 1 tablet PO DAILY 07/15/20 05/14/23 History tablet) melatonin 3 mg tablet 3 mg PO HS PRN Sleep 05/14/23 05/14/23 History meloxicam 15 mg tablet See Rx Instructions .Route 05/14/23 05/14/23 History .COMPLEX PRN arthritis Laboratory Tests 05/17/23 05:34 WBC 5.0 K/mm3 (4.5-10.0) RBC 3.47 L M/mm3 (4.2-5.4) Hgb 10.8 L g/dL (12.0-15.0) Hct 33.3 L % (37.0-47.0) MCV 96.0 fl (80-100) MCH 31.1 pg (26-34) MCHC 32.4 g/dl (32-36) RDW 12.4 % (11.5-14.5) Plt Count 168 k/mm3 (150-375) MPV 10.3 fl (7.4-10.4) PT 14.0 Seconds (11.1-14.7) INR 1.0 APTT 30.6 SECONDS (22.3-36.8) Sodium 139 mmol/L (137-145) Potassium 3.3 L mmol/L (3.4-5.0) Chloride 107 mmol/L (98-107) Carbon Dioxide 26 mmol/L (22-30) Anion Gap 6 L mmol/L (8-16) BUN 4 L mg/dL (7-17) Creatinine 0.70 mg/dL (0.7-1.0) Estim Creat Clear Calc 72 ml/min Estimated GFR > 60 (59 - ) Glucose 105 mg/dL (65-110) Calcium 8.0 L mg/dL (8.4-10.2) Lipase 41 U/L (23-300) Patient hx anesthesia problems: none Family hx anesthesia problems: none Results Review: All pre-operative results and documents have been reviewed as part of the pre-operative evaluation. [facility] Past Medical History Medical History Benign mucous membrane pemphigoid Carpometacarpal joint dislocation Chronic low back pain Insomnia Obesity (BMI 30.0-34.9) Osteoarthritis of both wrists Torn Achilles tendon Unspecified osteoarthritis, unspecified site Vitamin D deficiency Surgical History Surgical History Abnormal findings on laryngoscopy Vocal cord polyps with removal Hx of section 1989 & 1992 Family History Family History Grandparent Diabetes mellitus Father , At age 89 Family history of kidney disease Mother , At age 86 Hypertension Sibling Idiopathic hypertrophic subaortic stenosis, Onset Age: 46 Social History Social History Social History: She is . She lives with her significant other of over 15 years. 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 She drinks approximately 5 alcoholic beverages on the weekend. She denies any illicit substance use. She smoked 1 pack per day for approximately 10 years but quit in the . Code status: Full code Smoking packs per day: 1 Smoking cigarettes per day: 20.0 Years smoked: 10 Smoking pack-years: 10.00 Smoking status: Former smoker Second hand tobacco smoke exposure: No Smoking end date: 07/05/85 Alcohol intake: current Drinks per week: 5 Alcohol use details: Five select SS which her lower alcoholic beer altern
[2023-05-17] MEDS: LACTATED RINGERS 1,000 ML 30 ML IV CONT (09:03)
--- NOTE | 2023-05-17 09:47 | WPDHPUPDATE1 ---
History and Physical Update Update Date/Time: 05/17/23 09:47 History and Physical has been reviewed, including an updated exam of the patient. There are NO changes in the patient's condition. Risks, benefits, and alternatives have been discussed and questions answered. Patient agrees to proceed with procedure.
[2023-05-17] MEDS: LIDO 1%/EPINEPHRINE 1:100,000 50 ML VIAL 30 ML INFILTRATE (10:36)
--- NOTE | 2023-05-17 11:58 | W.PM.PROC2 ---
Procedure Note - Detailed Date of Procedure 05/17/23 Pre-op Diagnosis Acute Cholecystitis secondary to cholelithiasis Post-op Diagnosis Same Procedure Performed Laparoscopic cholecystectomy Surgeon Corbin Nails MD [employer] Mariela Hagan [facility] Anesthesia General Indications Patient is a 62-year-old female who presented with the complaints of right upper quadrant abdominal pain for 2 days. In the emergency room she had a normal white blood cell count and liver enzymes were normal. Abdominal ultrasound showed multiple large gallstones the gallbladder was some thickening of the gallbladder wall suggestive of possible acute cholecystitis. She presents now for a semi elective laparoscopic cholecystectomy Findings The gallbladder was definitely inflamed acutely with large multiple gallstones within the gallbladder. The gallbladder was edematous and actually had to be aspirated to decompress the gallbladder before I could hold the gallbladder with a grasper. The gallbladder wall was viable without necrosis or perforation. Description of Procedure After informed consent was obtained patient brought to the operating room she was placed supine position and general endotracheal anesthesia was administered. The abdomen is then prepped and draped usual sterile fashion. A time-out was then performed correctly identifying the patient as well as procedure to be performed. Patient was already on scheduled IV antibiotics. I started procedure by placing a 5mm Optiview port left upper quadrant with a direct optical insertion. Once inside the abdomen insufflated to adequate pneumoperitoneum of 15mmHg of CO2. Visualization of the periumbilical region showed no evidence of adhesions areas I placed a 5mm periumbilical trocar port. Looking into the upper portions of the abdomen the gallbladder was visualized it was acutely inflamed with erythema and edema of the gallbladder wall. It was so distended that was not able to hold with a laparoscopic grasper. At this point I then placed additional laparoscopic trocar ports to include a 10mm epigastric trocar port 2 right lateral subcostal 5mm trocar ports all under direct visualization. I then placed a laparoscopic decompressing needle into the abdomen through the most lateral right subcostal port and decompress the gallbladder after puncturing in the dome. Nonpurulent bile drained from the gallbladder. I was then able to hold the gallbladder at the dome with a laparoscopic grasper and elevate the gallbladder over the right half the towards the right shoulder. The gallbladder was so large and distended with large gallstones the eye was initially unable to see the infundibular gallbladder. Eventually I was able to hold a portion of the lower portion the gallbladder and identified infundibulum. Then proceeded to strip down the visceroperitoneum of the infundibular gallbladder allowing me to bring up the infundibular gallbladder so that I could reduce the large gallstone within the infundibular gallbladder then hold infundibular gallbladder. I continued my dissection down along the infundibular gallbladder to identify the cystic duct. Cystic duct was then dissected out circumferentially. The cystic artery is identified dissected out circumferentially as well. Posterior wall of gallbladder infundibulum dissected free liver into the critical view was obtained. At this point I then placed 2 clips proximally in cystic duct and 2 clips distally high on infundibular gallbladder. Cystic duct was then divided with Endo Tomas. In a similar fashion cystic artery was clipped and divided as well. The gallbladder was then resected off the liver utilized electrocautery. There was some spillage of bile and the puncture site on the gallbladder from the decompression. No gallstones were spilled. Once the gallbladder was completely freed from the liver is placed into an Endo-Catch bag and brought out through the epigastric port site. The ga
[2023-05-17] MEDS: LABETALOL HCL INJ 100 MG/20 ML VIAL 10 MG IV PUSH (12:19)
[2023-05-17] MEDS: fentaNYL CITRATE INJ (*CRX) 100 MCG/2 ML VIAL 25 MCG IV PUSH ×2 (12:55→12:58)
--- NOTE | 2023-05-17 13:40 | PM.IMPN ---
Progress Note: A&P Assessment and Plan (1) Acute cholecystitis: Code(s): K81.0 - Acute cholecystitis Status: Suspected Assessment and Plan: As evidenced by physical exam, CT Scan and US. Laproscopic karen performed by Dr. Nails today, nicky drain in place Will resume clears and advance as tolerated Labs in AM PRN pain control PRN Anti-emetics Zosyn d/c (2) Snoring: Code(s): R06.83 - Snoring Status: Chronic Assessment and Plan: No use of CPAP. Will continue to monitor Oxygen saturations specifically with sleeping. (3) Insomnia: Qualifiers: Insomnia type: primary Qualified Code(s): F51.01 - Primary insomnia Code(s): G47.00 - Insomnia, unspecified Status: Chronic Assessment and Plan: Continue melatonin Subjective Date/time seen: 05/17/23 13:40 Interval history: Patient is a 62 YO female admitted to the hospital with Biliary colic and confirmed Cholecystitis. Dr. Nails performed a laparoscopic cholecystectomy this morning, nicky drain is in place, dressing clean dry and intact. No drainage yet as she just arrived to the floor. She was complaining of some pain, but nurse was in to administer medication. She is not requiring oxygen at this time, alert and oriented but still groggy. Family member at bedside. Will continue to monitor, await surgical guidance for DVT prophylaxis and d/c. Review of Systems Review of Systems: All systems reviewed & are unremarkable except as noted in HPI and below Exam Const: General: no acute distress and uncomfortable HENMT: Face/Nose/Sinus: Normal nares present Mouth: Yes moist mucous membranes Eyes: General: appearance normal, both eyes and all related structures Sclera: sclerae normal Neck: Neck: supple and no JVD Resp: Effort & Inspection: normal respiratory effort Auscultation: clear to auscultation bilaterally Cardio: Rate: regular rate Rhythm: regular rhythm GI: Inspection: non-distended GI Palp: Yes Soft to palpation Other: hypoactive BS Skin: General skin exam: normal color, no rashes or lesions noted, lesion and No rashes Lesions: lesion noted Rashes: no rashes noted Other: RUQ wound from surgery, drain in place and clean dry and intact Neuro: Speech: normal speech Sensory Exam: normal sensation Extrem: General: normal to inspection, no edema and no pedal edema Psych: Mental Status: mental status grossly normal Affect: normal affect Objective Data Vital Signs Vital Signs: Vital Signs - 24 hr 05/16/23 14:00 05/16/23 19:36 05/16/23 20:00 Temperature 97.8 F 97.6 F Pulse Rate 76 73 73 Respiratory Rate 16 16 16 Blood Pressure 127/63 116/59 L Pulse Oximetry 95 99 99 Oxygen Delivery Room Air Oxygen Flow Rate 05/17/23 06:59 05/17/23 09:00 05/17/23 11:49 Temperature 97.6 F 97.7 F 97.7 F Pulse Rate 66 65 94 Respiratory Rate 16 14 17 Blood Pressure 117/70 136/62 142/48 H Pulse Oximetry 95 97 94 Oxygen Delivery Room Air Simple Face Mask Oxygen Flow Rate 6 05/17/23 12:00 05/17/23 12:19 05/17/23 12:15 Temperature Pulse Rate 105 H 99 99 Respiratory Rate 14 10 L Blood Pressure 168/58 H 167/66 H Pulse Oximetry 10 L 98 Oxygen Delivery Simple Face Mask Simple Face Mask Oxygen Flow Rate 10 10 05/17/23 12:30 05/17/23 12:45 05/17/23 13:00 Temperature Pulse Rate 85 81 81 Respiratory Rate 16 15 13 Blood Pressure 140/58 L 152/59 H 147/66 H Pulse Oximetry 93 92 94 Oxygen Delivery Room Air Room Air Room Air Oxygen Flow Rate 05/17/23 13:20 Temperature 97.9 F Pulse Rate 85 Respiratory Rate 20 Blood Pressure 159/57 H Pulse Oximetry 95 Oxygen Delivery Oxygen Flow Rate Intake/Output Intake/Output: Intake & Output 05/14/23 05/15/23 05/16/23 05/17/23 23:59 23:59 23:59 23:59 Intake Total 1200 2070 4550 2050 Output Total 1050 1100 201 Balance 1200 1020 3450 1849 Meds/Results Medications: Active Medicati
[2023-05-17] MEDS: oxyCODONE HCL (*CRX) 5 MG TAB IR PO (18:06)
[2023-05-17] MEDS: MELATONIN 3 MG TABLET 6 MG PO (20:37)
[2023-05-17] MEDS: HYDROcodone/acetaminophen (*CRX) 5-325 MG TABLET 1 TAB PO (20:37)
[2023-05-18 02:50] VITALS: BP 152/78; PULSE 84; RESP 16; TEMP 36.7; O2SAT 96
[2023-05-18] MEDS: SODIUM CHLORIDE 0.9% IV 1,000 ML 100 ML IV CONT (06:20)
[2023-05-18] MEDS: ACETAMINOPHEN 500 MG TABLET 1000 MG PO ×2 (06:24→12:39)
--- NOTE | 2023-05-18 09:39 | PM.DS ---
DS: Admitting Diagnosis Discharge Date 05/18/23 Admitting Diagnosis Acute cholecystitis DS: Summary Time Spent with Patient Time attestation: Total time spent providing and/or coordinating discharge services: DS: Data Data Completed and Pending Pending studies at discharge: Pending at discharge 05/17/23 10:31 Surgical [PTH] Routine Discharge Plan Discharge Consulting providers: Sommer Gonzalez; Matheus Mcdonnell Discharge Medications: No Action multivitamin [Daily Multi-Vitamin] Tablet 1 tablet PO DAILY cholecalciferol (vitamin D3) 10 mcg (400 unit) capsule 10 mcg PO DAILY calcium carbonate [Calcium 600] 600 mg calcium (1,500 mg) tablet 600 mg PO DAILY melatonin 3 mg Tablet 3 mg PO HS PRN (Reason: Sleep) meloxicam 15 mg tablet See Rx Instructions .ROUTE .COMPLEX PRN (Reason: arthritis) Rx Instructions: TAKE 1 TABLET BY MOUTH DAILY Date of admission: 05/16/23 14:39 Primary Care Provider: Anisa Hugo Admitting Provider: Trudi Wilkinson Attending physician on admission: Sommer Gonzalez Condition: Improved
--- NOTE | 2023-05-18 09:43 | PM.PNGS ---
Progress Note: A&P Assessment and Plan (1) Acute calculous cholecystitis: Code(s): K80.00 - Calculus of gallbladder with acute cholecystitis without obstruction Status: Acute Assessment and Plan: Doing well postop day 1 from laparoscopic cholecystectomy Discontinue HUANG drain Okay to discharge patient home from our standpoint. Follow up with Dr. Nails in 2 weeks. Plan I have discussed the patient's case and plan of care with Dr. Nails. Subjective Subjective Date/Time Seen: 05/18/23 09:43 Post Op day: 1 (laparoscopic cholecystectomy) Patient reports: no new complaints, feels better, tolerating a regular diet, voiding w/o difficulty, diarrhea and afebrile Interval history: Patient doing well this morning. She had some diarrhea this morning. No nausea or vomiting. Her incisional soreness is currently controlled with Tylenol. She is tolerating activity. No other complaints at this time. Review of Systems Review of Systems: All systems reviewed & are unremarkable except as noted in HPI and below Exam Const: General: comfortable, no acute distress and awake Orientation/consciousness: patient oriented x3 GI: Inspection: non-distended, incision (incisions dry and intact) and other (HUANG drain with serosanguineous drainage) GI Palp: Yes Soft to palpation and Yes Tenderness to palpation present (GI) (incisional) Auscultation: normal bowel sounds Neuro: General: moves all extremities and no focal motor deficits Extrem: General: no calf tenderness and no edema Psych: Mental Status: mental status grossly normal Insight: Good insight present (Psych) Objective Data Vital Signs Vital Signs: Vital Signs - 24 hr 05/17/23 11:49 05/17/23 12:00 05/17/23 12:19 Temperature 97.7 F Pulse Rate 94 105 H 99 Respiratory Rate 17 14 Blood Pressure 142/48 H 168/58 H Pulse Oximetry 94 10 L Oxygen Delivery Simple Face Mask Simple Face Mask Oxygen Flow Rate 6 10 05/17/23 12:15 05/17/23 12:30 05/17/23 12:45 Temperature Pulse Rate 99 85 81 Respiratory Rate 10 L 16 15 Blood Pressure 167/66 H 140/58 L 152/59 H Pulse Oximetry 98 93 92 Oxygen Delivery Simple Face Mask Room Air Room Air Oxygen Flow Rate 10 05/17/23 13:00 05/17/23 13:20 05/17/23 13:35 Temperature 97.9 F 97.7 F Pulse Rate 81 85 88 Respiratory Rate 13 20 18 Blood Pressure 147/66 H 159/57 H 153/53 H Pulse Oximetry 94 95 90 Oxygen Delivery Room Air Oxygen Flow Rate 05/17/23 14:05 05/17/23 15:05 05/17/23 20:30 Temperature 97.3 F L 97.5 F L 98.7 F Pulse Rate 88 93 90 Respiratory Rate 18 18 18 Blood Pressure 141/67 H 166/72 H 156/72 H Pulse Oximetry 97 96 94 Oxygen Delivery Oxygen Flow Rate 05/17/23 23:50 05/18/23 02:50 Temperature 98.1 F 98.1 F Pulse Rate 85 84 Respiratory Rate 16 16 Blood Pressure 151/69 H 152/78 H Pulse Oximetry 91 96 Oxygen Delivery Oxygen Flow Rate Intake/Output Intake/Output: Intake & Output 05/15/23 05/16/23 05/17/23 05/18/23 23:59 23:59 23:59 23:59 Intake Total 2070 4550 3290 1000 Output Total 1050 1100 2496 1890 Balance 1020 3450 794 -890 Meds/Results Medications: Active Medications Generic Name Dose Route Start Last Admin Trade Name Freq PRN Reason Stop Dose Admin Acetaminophen 1,000 mg 05/17/23 13:10 05/18/23 06:24 Acetaminophen 500 Mg Tablet PO 1,000 mg Q6H PRN Administration Mild Pain (1-3) or Fever Hydrocodone Bitart/Acetaminophen 1 tab 05/17/23 13:10 05/17/23 20:37 Hydrocodone/Acetaminophen (*Crx) 5-325 Mg Tablet PO 1 tab Q4H PRN Administration Pain Rated 4-6 Calcium Carbonate 500 mg 05/18/23 09:00 05/18/23 08:06 Calcium Carbonate (Oscal) 500 Mg Tablet PO Not Given DAILY AISHA Hydromorphone HCl 0.5 mg 05/14/23 19:56 05/17/23 13:27 Hydromorphone Hcl Inj (*Crx) 1 Mg/Ml Syr IV PUSH 0.5 mg Q4H PRN Administration Pain Rated 7-10 Melatonin 6 mg 05/15/23 00:25 05/17/23 20:37 Melatonin 3 Mg Tablet
[2023-05-18 10:26] VITALS: BP 169/80; PULSE 77; RESP 16; TEMP 36.7; O2SAT 98
--- NOTE | 2023-05-18 12:37 | PM.DS ---
DS: Admitting Diagnosis Discharge Date 05/18/23 Admitting Diagnosis acute cholecystitis DS: Discharge Diagnosis Discharge Diagnosis (1) Acute cholecystitis: Code(s): K81.0 - Acute cholecystitis Status: Suspected Assessment and Plan: As evidenced by physical exam, CT Scan and US. Laproscopic karen performed by Dr. Nails, Dinesh drain draining serosanguineous fluid, to be removed prior to d/c tolerated regular diet Zosyn d/c (2) Snoring: Code(s): R06.83 - Snoring Status: Chronic Assessment and Plan: No use of CPAP. (3) Insomnia: Qualifiers: Insomnia type: primary Qualified Code(s): F51.01 - Primary insomnia Code(s): G47.00 - Insomnia, unspecified Status: Chronic Assessment and Plan: Continue melatonin DS: Summary Hospital Course Hospital Course: Patient is a 62 YO female admitted to the hospital with Biliary colic and confirmed Cholecystitis by CT and US. Dr. Nails performed a laparoscopic cholecystectomy yesterday, dinesh drain is in place, dressing clean dry and intact. Serosanguineous drainage present, gen surg to remove prior to d/c. She is tolerating a regular diet this morning, reporting she is passing gas. Did have an episode of diarrhea this am, but otherwise denies pain. BS and abdominal exam WNL. Stable for d/c today as she has been cleared by Dr. Nails, to follow up with him in 2 weeks. Status at Discharge Functional status at discharge: independent ambulation Overall status at discharge: patient is progressing back to baseline Time Spent with Patient Time attestation: Total time spent providing and/or coordinating discharge services: Exam Const: General: comfortable, no acute distress and uncomfortable Other: No acute distress, obese, appears stated age HENMT: Face/Nose/Sinus: Normal nares present Mouth: Yes moist mucous membranes Other: Mucous membranes are tacky, no oral pharyngeal erythema Eyes: General: appearance normal, both eyes and all related structures Sclera: sclerae normal Other: Pupils are equal and reactive, no scleral icterus, no conjunctival pallor Neck: Neck: supple and no JVD Other: Large neck circumference, no lymphadenopathy, supple Resp: Effort & Inspection: normal respiratory effort Auscultation: clear to auscultation bilaterally Other: Clear to auscultation bilaterally, no increased work of breathing Cardio: Rate: regular rate Rhythm: regular rhythm Heart sounds: no gallops, no murmurs and no rubs Other: Regular rate, regular rhythm, 2+ bilateral radial pedal pulses GI: GI Palp: Yes Soft to palpation Auscultation: normal bowel sounds Skin: General skin exam: normal color and no rashes or lesions noted Other: RUQ wound from surgery, drain in place and clean dry and intact Neuro: General: gait normal Speech: normal speech Motor exam (neuro): 5/5 motor strength present throughout and Normal motor muscle tone present throughout Sensory Exam: normal sensation Extrem: General: normal to inspection, no edema and no pedal edema Psych: Mental Status: mental status grossly normal Affect: normal affect DS: Data Data Completed and Pending Pending studies at discharge: Pending at discharge 05/17/23 10:31 Surgical [PTH] Routine Discharge Plan Discharge Attending physician on discharge: Fvaio Cunha Consulting providers: Sommer Gonzalez; Matheus Mcdonnell Discharging Clinician: Mariella Crouch Anticipated Discharge Date/Time: 05/18/23 12:35 Patient Disposition: Home, Self-Care Activity: other - see discharge instructions Diet: low fat Wound Care Instructions: incision open to air and other - see discharge instructions Discharge Instructions: DISCHARGE INSTRUCTIONS DR. Nials 1. May shower over incisions starting tomorrow (05/19). HUANG drain removed prior to discharge. Change this gauze dressing once daily for
== END 2023-05-18 13:20 | disposition home or self-care (01) | DRG 410 ==
LOC: ANHED 15:14 → ANH3MEDSUR 21:05 → ANH2MED 21:40
PROVIDERS: Surgery; Admitting Provider Internal Medicine; Emergency Provider Emergency Medicine; PCP Family Medicine; Visit Provider Nurse Practitioner
PROC: 0FT44ZZ Resection of Gallbladder, Percutaneous Endoscopic Approach (ICD-10-PCS; CPT 47562; principal; 2023-05-17 09:30)
DX: K80.00 Calculus of gallbladder with acute cholecystitis without obstruction (principal); E55.9 Vitamin D deficiency, unspecified; E66.9 Obesity, unspecified; M19.032 Primary osteoarthritis, left wrist; M19.031 Primary osteoarthritis, right wrist; M54.59 Other low back pain; G89.29 Other chronic pain; G47.00 Insomnia, unspecified; Z87.891 Personal history of nicotine dependence
CPT/HCPCS: 36415; 71045; 74176; 76705; 80048; 80053; 81001; 83690; 84484; 85025; 85027; 85610; 85730; 87086; 88304; 96361; 96365; 96368; 96375; 99285; A9270; C1713; G0378; J0330; J0360; J0696; J1170; J1836; J2250; J2405; J2543; J2704; J3010; J7030; J7120

== ENCOUNTER 2023-12-24 08:20 | Outpatient (CLI) | payer BC, SELFPAY ==
--- NOTE | ~2023-12-24 | XR_ITS ---
EXAMINATION: XR hand LT 2V DATE: 12/24/2023 08:37 INDICATION: Left hand pain. Arthritis. TECHNIQUE: 2 views of left hand were obtained. COMPARISON: Left hand radiographs 03/03/2017 FINDINGS: Bone alignment is normal. No fracture. There is severe osteoarthritis of first carpometacar pal joint with loose bodies. There is mild osteoarthritis of first and third metacarpophalangeal join ts and some of the interphalangeal joints. There is moderate osteoarthritis of first interphalangeal joint, severe osteoarthritis of second distal interphalangeal joint, and moderate osteoarthritis of t hird and fourth distal interphalangeal joints. IMPRESSION: 1. Polyarticular osteoarthritis. Reviewed, dictated and finalized at location A.
--- NOTE | ~2023-12-24 | XR_ITS ---
EXAMINATION: XR hand RT 2V DATE: 12/24/2023 08:37 INDICATION: Right hand pain. Arthritis. TECHNIQUE: 2 views of right hand were obtained. COMPARISON: None. FINDINGS: Bone alignment is normal. No fracture. There is mild osteoarthritis of first carpometacarpa l joint, second-fourth metacarpophalangeal joints, and some of the interphalangeal joints. There is s evere osteoarthritis of second and fourth distal interphalangeal joints and moderate osteoarthritis o f third and fifth distal interphalangeal joints. IMPRESSION: 1. Polyarticular osteoarthritis. Reviewed, dictated and finalized at location A.
== END 2023-12-24 08:21 | disposition home or self-care (01) ==
LOC: ANHIMG 08:23
PROVIDERS: PCP Family Medicine; Visit Provider Physician Assistant Medical
DX: M19.041 Primary osteoarthritis, right hand (principal); M19.042 Primary osteoarthritis, left hand
CPT/HCPCS: 73120

== ENCOUNTER 2024-01-24 11:15 | Outpatient (RCR) | payer BC, SELFPAY ==
--- NOTE | 2023-12-31 11:59 | OTOPEVAL1 ---
Assessment and note entered by Santos Britton, CELESTINE/Stephanie, CHT Evaluation Information Assessment Status Evaluation Diagnosis CMC OA bilaterally Subjective Information Patient is left handed. Reports right thumb is worse than the left. States she has been having pain for ~5 years and it's progressively become worse. Difficulties with opening soda bottles, milk cartons, and holding reins on her horse. Reported Pain Level Pain Score 4: Self Report Assessment OT Clinical Summary Patient referred to OT with dx of bilateral 1st CMC OA. She presents with intact functional ROM, however pain with thumb ROM in all planes. Gross weakness and functional limitations with gross gripping. A custom hand based thumb spica splint was fabricated today for the right thumb. Issued ROM. Continued skilled OT indicated for use of modalities, HEP instruction/progression, education on joint protection techniques, and fabrication of a left thumb spica splint. Plan of Care Interventions Therapeutic Exercise,Manual Therapy,Therapeutic Activities,Ultrasound,Paraffin OT Services Indicated Yes Treatment Frequency and 1x/week for 5 visits Duration These treatments will address the objective and functional deficits as defined above. The patient will be advanced safely and appropriately in order for the patient to progress towards his/her prior level of function. Additional exercises will be introduced and as well as a comprehensive home exercise program upon discharge, if needed, ?to ensure carryover of functional gains achieved in the clinic. This treatment plan has been reviewed and agreement upon by the patient.
--- NOTE | 2023-12-31 11:59 | OPREHPOC ---
Outpatient Therapy Plan of Care This is a Multidisciplinary Plan of Care that may contain components documented by all disciplines (PT, OT, and ST.) OT Problem 1 OT Problem #1 Knowledge Deficit OT Goal 1 Goal 1. Patient to be independent with instructed materials. Target Visit 5 OT Problem 2 OT Problem #2 Pain OT Goal 1 Goal 1. Patient to report reduced bilateral thumb pain to 4/10 at worst . Target Visit 5 OT Problem 3 OT Problem #3 Impaired Strength OT Goal 1 Goal 1. Patient to be able to tolerate thumb CMC stabilization exercises without pain. 2. Patient to be able to tolerate gentle psychosocial rehabilitation counselor/ pinch ther ex without pain.
--- NOTE | 2024-01-31 15:54 | OTOPDC ---
Assessment and note entered by Santos Britton, OTR/L, ARACELI OT D/C Notification 01/31/24 OT Clinical Summary Patient referred to OT with bilateral 1st CMC OA. She attended 3 treatment sessions and was making progress with reduced pain. She called to cancel her remaining appointments due to insurance. No formal reassessment completed. D/C OT.
== END 2024-02-01 09:37 | disposition home or self-care (01) ==
LOC: ANHOT 11:15
PROVIDERS: PCP Physician Assistant Medical; Visit Provider Plastic Surgery
DX: M18.9 Osteoarthritis of first carpometacarpal joint, unspecified (principal)
CPT/HCPCS: 97018; 97110; 97140; 97165; L3913